=== PATIENT | female | born 1975 | race Caucasian/White ===

== ENCOUNTER 2018-05-07 14:31 | Emergency (ER) | payer OTHER | END 2018-05-07 15:23 | disposition left against medical advice (07) | LOC: D.ER 14:31 | DX: G89.18 Other acute postprocedural pain (principal) ==

== ENCOUNTER 2018-10-03 15:04 | Emergency (ER) | payer MEDICAID ==
[~2018-10-03] VITALS: Ht 162.6 cm; Wt 157.3 kg
[2018-10-03 15:19] VITALS: Ht 162.6 cm; Wt 157.3 kg
[2018-10-03] MEDS ORDERED: COREG25 MG PO (15:21)
[2018-10-03] MEDS ORDERED: K LYTE PO (15:21)
[2018-10-03] MEDS ORDERED: ALDACTONE100 MG PO (15:22)
[2018-10-03] MEDS ORDERED: BUMETANIDE0.5 MG PO (15:22)
[2018-10-03] MEDS ORDERED: MIDAMOR5 MG PO (15:22)
[2018-10-03] MEDS ORDERED: METOLAZONE5 MG PO (15:24)
[2018-10-03] MEDS ORDERED: ZANAFLEX2 M1 PO (15:24)
[2018-10-03] MEDS ORDERED: LIORESAL 10 MG10 MG PO (15:24)
[2018-10-03] MEDS ORDERED: HYDROXYZINE PA100 MG PO (15:25)
[2018-10-03] MEDS ORDERED: COMPAZINE5 MG PO (15:25)
[2018-10-03] MEDS ORDERED: MIRAPEX0.5 MG PO (15:25)
[2018-10-03] MEDS ORDERED: ULTRAM50 MG PO (19:47)
[2018-10-03 20:11] VITALS: BP 156/82
== END 2018-10-03 20:11 | disposition home or self-care (01) ==
LOC: D.ER 15:04
DX: K94.23 Gastrostomy malfunction (principal)

== ENCOUNTER 2018-10-04 11:47 | Emergency (ER) | payer MEDICAID ==
[~2018-10-04] VITALS: Ht 162.6 cm; Wt 157.3 kg
[~2018-10-04 11:47] MED LIST: ALDACTONE100 MG PO; BUMETANIDE0.5 MG PO; COMPAZINE5 MG PO; COREG25 MG PO; HYDROXYZINE PA100 MG PO; K LYTE PO; LIORESAL 10 MG10 MG PO; METOLAZONE5 MG PO; MIDAMOR5 MG PO; MIRAPEX0.5 MG PO; ULTRAM50 MG PO; ZANAFLEX2 M1 PO
[2018-10-04 11:50] VITALS: Ht 162.6 cm; Wt 157.3 kg
[2018-10-04 12:58] LABS: BASOPHILS 0.7 % (0-2); EOSINOPHILS 3.3 % (0-7); HEMATOCRIT 35.8 % (36.0-48.0); HEMOGLOBIN 11.5 g/dL (12-16); IMMATURE GRANULOCYTES 0.2 % (0-5); LYMPHOCYTES 28.4 % (15-50); MCH 24.3 pg (26.0-34.0); MCHC 32.1 g/dL (31.0-37.0); MCV 75.7 fL (80.0-100.0); MEAN PLATELET VOLUME 9.5 fL (7.4-10.4); MONOCYTES 6.1 % (2-11); NEUTROPHILS 61.3 % (40-80); PLATELET COUNT 228 10x3/uL (130-400); RBC 4.73 10x6/uL (4.00-5.40); RDW 15.3 % (11.5-14.5); WBC 6.1 10x3/uL (4.8-10.8)
[2018-10-04 13:01] LABS: ALBUMIN 2.8 g/dL (3.4-5.0); ALKALINE PHOSPHATASE 91 U/L (46-116); ALT (SGPT) 31 U/L (10-68); AMYLASE - SERUM 15 U/L (25-115); BILIRUBIN - TOTAL 0.46 mg/dL (0.2-1.3); CALC OSMOLALITY 279 mosm/kg (275-300); CALCIUM 8.3 mg/dL (8.5-10.1); CARBON DIOXIDE 23.4 mmol/L (21.0-32.0); CHLORIDE - SERUM 108 mmol/L (98-107); CREATININE - SERUM 0.7 mg/dL (0.6-1.3); GLUCOSE 108 mg/dL (74-106); LIPASE 100 U/L (73-393); POTASSIUM - SERUM 3.5 mmol/L (3.5-5.1); PROTEIN - SERUM 6.4 g/dL (6.4-8.2); SODIUM 141 mmol/L (136-145); UREA NITROGEN 8 mg/dL (7-18); eGFR NON AFRICAN AMERICAN > 90 mL/min (90-120)
[2018-10-04 13:42] LABS: APPEARANCE HAZY (CLEAR); BILIRUBIN NEGATIVE (NEGATIVE); COLOR YELLOW (YELLOW); GLUCOSE NEGATIVE (NEGATIVE); KETONE NEGATIVE (NEGATIVE); NITRITE NEGATIVE (NEGATIVE); PROTEIN TRACE mg/dL (NEGATIVE); RED CELLS - URINE RARE /hpf (0-5); SPECIFIC GRAVITY 1.015 (1.005-1.020)
[2018-10-04 13:43] LABS: BACTERIA MANY /hpf (NONE SEEN); CALCIUM OXALATE CRYSTALS 0-5 /hpf (NONE SEEN); EPITHELIAL CELLS 0-5 /hpf (0-5); MUCUS <1+ /lpf (NONE SEEN)
[2018-10-04 15:04] VITALS: BP 164/85
== END 2018-10-04 15:05 | disposition home or self-care (01) ==
LOC: D.ER 11:47
PROVIDERS: Family Medicine
DX: K94.23 Gastrostomy malfunction (principal)

== ENCOUNTER 2018-10-07 11:04 | Emergency (ER) | payer MEDICAID ==
[~2018-10-07] VITALS: Ht 162.6 cm; Wt 157.3 kg
[2018-10-07 11:15] VITALS: Ht 162.6 cm; Wt 157.3 kg
[2018-10-07 13:42] LABS: BASOPHILS 0.3 % (0-2); EOSINOPHILS 3.3 % (0-7); HEMATOCRIT 37.9 % (36.0-48.0); HEMOGLOBIN 12.1 g/dL (12-16); IMMATURE GRANULOCYTES 0.2 % (0-5); LYMPHOCYTES 25.7 % (15-50); MCH 24.2 pg (26.0-34.0); MCHC 31.9 g/dL (31.0-37.0); MCV 75.8 fL (80.0-100.0); MEAN PLATELET VOLUME 9.3 fL (7.4-10.4); MONOCYTES 5.5 % (2-11); PLATELET COUNT 235 10x3/uL (130-400); RDW 14.9 % (11.5-14.5)
[2018-10-07 13:54] LABS: CALC OSMOLALITY 275 mosm/kg (275-300); CALCIUM 8.3 mg/dL (8.5-10.1); CARBON DIOXIDE 23.9 mmol/L (21.0-32.0); CHLORIDE - SERUM 104 mmol/L (98-107); CREATININE - SERUM 0.8 mg/dL (0.6-1.3); GLUCOSE 99 mg/dL (74-106); POTASSIUM - SERUM 3.2 mmol/L (3.5-5.1); SODIUM 139 mmol/L (136-145); UREA NITROGEN 8 mg/dL (7-18); eGFR NON AFRICAN AMERICAN 83 mL/min (90-120)
[2018-10-07] MEDS ORDERED: CLEOCIN HCL300 MG PO (14:15)
[2018-10-07] MEDS ORDERED: ULTRAM50 MG PO (14:15)
[2018-10-07 15:10] VITALS: BP 124/74
== END 2018-10-07 14:47 | disposition home or self-care (01) ==
LOC: D.ER 11:04
PROVIDERS: Emergency Medicine
DX: K94.23 Gastrostomy malfunction (principal); E87.6 Hypokalemia

== ENCOUNTER → 2018-12-19 15:47 | Outpatient (CLI) | payer OTHER, MEDICAID ==
[2018-10-07 11:15] VITALS: BMI 59.5
[~2018-12-19 15:47] MED LIST changes: +CLEOCIN HCL300 MG PO
[2018-12-19 16:54] LABS: ALKALINE PHOSPHATASE 107 U/L (46-116); ALT (SGPT) 32 U/L (10-68); BILIRUBIN - TOTAL 0.15 mg/dL (0.2-1.3); CARBON DIOXIDE 26.8 mmol/L (21.0-32.0); CHLORIDE - SERUM 100 mmol/L (98-107); CREATININE - SERUM 0.8 mg/dL (0.6-1.3); MAGNESIUM - SERUM 1.7 mg/dL (1.8-2.4); PROTEIN - SERUM 6.5 g/dL (6.4-8.2); SODIUM 138 mmol/L (136-145); UREA NITROGEN 13 mg/dL (7-18); eGFR NON AFRICAN AMERICAN 83 mL/min (90-120)
[2018-12-19 16:55] LABS: CALC OSMOLALITY 280 mosm/kg (275-300); GLUCOSE 191 mg/dL (74-106)
[2018-12-19 16:58] LABS: POTASSIUM - SERUM 2.9 mmol/L (3.5-5.1)
== END | disposition home or self-care (01) ==
LOC: D.LABREF 15:47
PROVIDERS: ATTEND Internal Medicine
DX: I11.0 Hypertensive heart disease with heart failure (principal); I50.9 Heart failure, unspecified; E11.9 Type 2 diabetes mellitus without complications

== ENCOUNTER 2020-03-26 05:44 | Day surgery (SDC) | payer MEDICARE ==
[~2020-03-26] VITALS: Ht 162.6 cm; Wt 152.4 kg
[2020-03-26 06:06] LABS: BASOPHILS 0.5 % (0-2); EOSINOPHILS 3.7 % (0-7); HEMATOCRIT 31.1 % (36.0-48.0); HEMOGLOBIN 9.2 g/dL (12-16); IMMATURE GRANULOCYTES 1.3 % (0-5); LYMPHOCYTES 31.2 % (15-50); MCH 21.6 pg (26.0-34.0); MCHC 29.6 g/dL (31.0-37.0); MEAN PLATELET VOLUME 9.6 fL (7.4-10.4); MONOCYTES 5.2 % (2-11); NEUTROPHILS 58.1 % (40-80); PLATELET COUNT 242 10x3/uL (130-400); RBC 4.26 10x6/uL (4.00-5.40); RDW 15.7 % (11.5-14.5)
[2020-03-26 06:20] LABS: INR 0.97 (0.85-1.17); PROTIME 12.8 SECONDS (11.6-15.0)
[2020-03-26 06:23] LABS: ANION GAP 16.3 mmol/L (8-16); CALCIUM 8.7 mg/dL (8.5-10.1); CARBON DIOXIDE 20.2 mmol/L (21.0-32.0); POTASSIUM - SERUM 3.5 mmol/L (3.5-5.1)
[2020-03-26 07:04] VITALS: Ht 162.6 cm; Wt 152.4 kg
[2020-03-26] MEDS ORDERED: REQUIP0.25 MG PO (07:26)
[2020-03-26] MEDS ORDERED: JARDIANCE25 MG PO (07:27)
[2020-03-26] MEDS ORDERED: PHENERGAN6.25 MG/5 PO (07:27)
[2020-03-26] MEDS ORDERED: VICTOZA0.6 MG/0.1 SQ (07:28)
[2020-03-26] MEDS ORDERED: PRECOSE25 MG PO (07:28)
[2020-03-26] MEDS ORDERED: BASAGLAR K100 UNIT/1 SC (07:29)
[2020-03-26] MEDS ORDERED: VITAMIN D5000 UNI1 PO (07:29)
[2020-03-26] MEDS ORDERED: XARELTO20 MG PO (07:30)
[2020-03-26] MEDS ORDERED: NORTRIPTYLINE H50 MG PO (07:30)
[2020-03-26] MEDS ORDERED: XANAX1 MG PO (07:30)
[2020-03-26] MEDS ORDERED: BUSPIRONE HCL7.5 MG PO (07:31)
--- NOTE | 2020-03-26 09:50 | NUR ---
STERILE MAGNET PLACED OVER ICD IMPLANT PRIOR TO START OF PROCEDURE.
[2020-03-26] MEDS ORDERED: ULTRAM50 MG PO (10:39)
--- NOTE | 2020-03-26 10:57 | NUR ---
1025 INFUSAPORT ACCESSED RIGHT UPPER CHEST USING STERILE TECHNIQUE. GOOD BLOOD RETURN ON ASPIRATION. IV FLUID CONNECTED.
--- NOTE | 2020-03-26 14:02 | NUR ---
121 DISCHARGED HOME. TAKEN DOWN VIA W/C AND ASSISTED TO CAR WITH FAMILY. ADVISED TO CALL OR COME BACK IF ANY PROBLEMS.
--- NOTE | 2020-03-30 16:05 | OP ---
PATIENT NAME: SASCHA GONZALEZ MEDICAL RECORD: [id number] :75 LOCATION:[place] ADMISSION DATE: SURGEON: KENDALL MAURICIO MD DATE OF OPERATION: 03/26/2020 REFERRED BY: Hebert Parr MD PREOPERATIVE DIAGNOSES: Nonfunctioning left internal jugular tunneled dialysis catheter and end-stage renal disease, on chronic hemodialysis and dependence on hemodialysis, also malignant hyperthermia susceptibility. POSTOPERATIVE DIAGNOSES: Nonfunctioning left internal jugular tunneled dialysis catheter and end-stage renal disease, on chronic hemodialysis and dependence on hemodialysis, also malignant hyperthermia susceptibility. OPERATION PERFORMED: Insertion of a right internal jugular HemoSplit tunneled dialysis catheter accessed by continuous real-time ultrasound guidance with image documentation and fluoroscopically guided placement of the catheter in the right atrium with contrast injection to confirm position and then, also removal of left internal jugular tunneled dialysis catheter. SURGEON: Kendall Mauricio MD ANESTHESIA: Local 1% lidocaine without epinephrine and propofol with monitoring and management per RN ER. PREOPERATIVE NOTE: This young lady is on chronic hemodialysis due to chronic kidney disease, which is a chronic potassium wasting illness. She has required large amounts of potassium replacement and for that reason has a right internal jugular Infusaport. She also has a history of congestive heart failure and cardiac dysrhythmias and has an automatic intracardiac defibrillator which was inserted transvenously from the left. She is presently on dialysis via left internal jugular tunneled dialysis catheter, which has not functioned well and I replaced it only a few days ago at [facility] and my new catheter even though placed much more deeply into the inferior vena cava is not functioning either. The patient is brought to the hospital and to the operating room as an outpatient this morning in order to remove the present catheter and replace it with a new one. Probably at least if I can, I am going to access her from the right side. All the personnel are aware of the patient's history of malignant hyperthermia or it susceptibility demonstrated on genetic testing at [facility] and protocol will be followed for that. Under TIVA per RN ER with propofol intravenously, the patient was placed in supine position and prepped and draped in a sterile manner. A duplex ultrasound was used to locate and examined the right internal jugular vein. It was of normal caliber and fully compressible without thrombosis and the Infusaport catheter was not visible above the clavicle in the internal jugular vein. The fluoroscopic images demonstrated the catheter in a somewhat lateral position as possible this was a supraclavicular access actually into the proximal subclavian vein or very proximal internal jugular. Skin and subcutaneous tissues were anesthetized with lidocaine and a small incision was made at the base of the neck there on the right and then, again with continuous real-time ultrasound imaging, a micropuncture needle and guidewire were inserted into the right internal jugular vein. Fluoroscopy revealed satisfactory positioning of that, a OPERATIVE REPORT [id number] SASCHA GONZALEZ catheter was inserted over the wire and a wire exchange performed and I advanced a wire into the inferior vena cava. Dilators were passed over the wire and lastly, a dilator peel-away sheath. I chose a 23-cm long catheter so that we had plenty of length to place it deeply into the right atrium or upper inferior vena cava. The catheter was placed in a subcutaneous tunnel through a small incision beneath the right clavicle and brought up to the cervical wound where it was then inserted through the peel-away sheath. The sheath was removed and the catheter tips positioned deep in the right atrium. At first, the venous limb passed into the ventricle and the catheter was pulled back and then readvanced over the guidewire into the inferior vena cava and contrast injection performed at both locations to confirm the interpretation and subsequent final positioning. Both limbs of the catheter were accessed and aspirated, free return of blood was confirmed. It was then flushed with heparinized saline and then heparin locked with 1000 units per cc of heparin. The catheter was sutured to the skin near the entry site with 2-0 Prolene and the cervical incision closed with a single interrupted inverted 3-0 Vicryl and Dermabond glue and I was dressed then with Maxorb Ag, Tegaderm, and Cavilon skin prep. A chlorhexidine Biopatch was applied at the catheter entry site and a sterile adhesive CVL dressing then applied. The patient's Infusaport had been utilized preoperatively for venous access before she was prepped and draped, the needle was removed and at the end of the case, the port was re-accessed and flushed with heparinized solution and the needle removed. During the procedure, the left internal jugular catheter was pulled back, so that there was ample room in the right atrium for the new hardware that was being inserted and when I was sufficiently pleased with the position of the new catheter, the left-sided catheter was then removed completely. The Dacron felt cuff was not adherent within the subcutaneous canal due to this only having been there for a couple of days and it required minimal traction to remove the catheter. The patient was placed in reverse Trendelenburg position and direct pressure held on the old catheter tract after which, the site was dressed with Betadine ointment and a sterile dry gauze dressing. At this point, the patient fully awakened, was taken to the recovery room in stable condition. Blood loss during the operation about 10 cc. This was unreplaced. Sponges, instruments, and needles were accounted for and no drain was used. The patient's systemic anticoagulation, I believe is Xarelto at any rate a NOAC was not interrupted for this procedure. PLAN: The patient will be discharged to home with instructions to keep the head elevated all day. She is to leave the initial dressing alone, keep it dry and intact and the dressings can be removed and changed at dialysis. She will continue all of her same medications including anticoagulants. I will not need to see her back in my office unless there is a problem or complication. She is given my office and personal cell telephone numbers and is advised to call if she has any questions or concerns. She is given a prescription for 10 tramadol 50 mg tablets 1 p.o. q.4 hours p.r.n. pain. TRANSINT:[id number] Voice Confirmation ID: [id number] DOCUMENT ID: [id number] cc: [facility] OPERATIVE REPORT [id number] SASCHA GONZALEZ JAMES MD at 1605 CC: ISIS CLEMENTS MD [id number] DICTATION DATE: 03/26/20 1101 SALES ACCOUNT COORDINATOR: 03/26/20 1655 [facility] 03/26/20 [facility] [address] [place] [address]
== END 2020-03-26 12:15 | disposition home or self-care (01) ==
LOC: D.OPS 05:44
PROVIDERS: ATTEND Internal Medicine Nephrology
DX: T82.49XA Other complication of vascular dialysis catheter, initial encounter (principal); N18.6 End stage renal disease; Z99.2 Dependence on renal dialysis; R50.9 Fever, unspecified; E03.9 Hypothyroidism, unspecified; E78.5 Hyperlipidemia, unspecified

== ENCOUNTER 2020-03-31 15:39 | Inpatient (IN) | payer MEDICARE ==
[~2020-03-31] VITALS: Ht 162.6 cm; Wt 156.0 kg
[~2020-03-31 15:39] MED LIST changes: +BASAGLAR K100 UNIT/1 SC; +BUSPIRONE HCL7.5 MG PO; +JARDIANCE25 MG PO; +NORTRIPTYLINE H50 MG PO; +PHENERGAN6.25 MG/5 PO; +PRECOSE25 MG PO; +REQUIP0.25 MG PO; +VICTOZA0.6 MG/0.1 SQ; +VITAMIN D5000 UNI1 PO; +XANAX1 MG PO; +XARELTO20 MG PO
[2020-03-31 16:32] LABS: CALC OSMOLALITY 272 mosm/kg (275-300); CALCIUM 8.3 mg/dL (8.5-10.1); CARBON DIOXIDE 22.3 mmol/L (21.0-32.0); CHLORIDE - SERUM 99 mmol/L (98-107); CREATININE - SERUM 0.9 mg/dL (0.6-1.3); GLUCOSE 183 mg/dL (74-106); POTASSIUM - SERUM 3.7 mmol/L (3.5-5.1); SODIUM 134 mmol/L (136-145); UREA NITROGEN 12 mg/dL (7-18); eGFR NON AFRICAN AMERICAN 72 mL/min (90-120)
[2020-03-31 16:49] LABS: ALKALINE PHOSPHATASE 147 U/L (30-120); ALT (SGPT) 40 U/L (10-68); BILIRUBIN - TOTAL 0.48 mg/dL (0.2-1.3); CKMB 0.6 U/L (0.0-3.6); CREATINE KINASE 43 UL (21-215); PRO BNP 217 pg/mL (0-125)
[2020-03-31 16:56] LABS: TROPONIN-I < 0.017 ng/mL (0.000-0.060)
[2020-03-31 17:04] LABS: ALBUMIN 3.6 g/dL (3.4-5.0)
[2020-03-31 17:25] LABS: BASOPHILS 0.2 % (0-2); EOSINOPHILS 2.1 % (0-7); IMMATURE GRANULOCYTES 0.9 % (0-5); LYMPHOCYTES 18.7 % (15-50); MCH 23.3 pg (26.0-34.0); MCHC 30.3 g/dL (31.0-37.0); MCV 76.7 fL (80.0-100.0); MEAN PLATELET VOLUME 9.5 fL (7.4-10.4); MONOCYTES 4.6 % (2-11); NEUTROPHILS 73.5 % (40-80); PLATELET COUNT 142 10x3/uL (130-400); WBC 8.9 10x3/uL (4.8-10.8)
[2020-03-31 17:49] LABS: APTT 29.3 SECONDS (22.8-39.4); INR 1.03 (0.85-1.17); PROTIME 13.4 SECONDS (11.6-15.0)
[2020-03-31 20:30] VITALS: BP 138/99
--- NOTE | 2020-03-31 21:40 | NUR ---
TO BED VIA WC FROM ER ALERT AND ORIENTED C/O PAIN TO BED LOW AND LOCKED LOTS OF NEEDS SEEN TO AND MD NOTIFIED OF PAIN MED REQUEST CALL LIGHT IS WITH PT
--- NOTE | 2020-03-31 22:03 | NUR ---
TELEMETRY IS NOT AVAILABLE AT THIS TIME PT ON WAITING LIST
[2020-04-01 04:00] VITALS: BP 139/67
[2020-04-01 05:32] LABS: BASOPHILS 0.4 % (0-2); EOSINOPHILS 3.5 % (0-7); HEMOGLOBIN 9.5 g/dL (12-16); IMMATURE GRANULOCYTES 0.7 % (0-5); LYMPHOCYTES 27.8 % (15-50); MCH 22.9 pg (26.0-34.0); MCHC 29.7 g/dL (31.0-37.0); MCV 77.1 fL (80.0-100.0); MEAN PLATELET VOLUME 9.7 fL (7.4-10.4); MONOCYTES 6.2 % (2-11); NEUTROPHILS 61.4 % (40-80); PLATELET COUNT 133 10x3/uL (130-400); RBC 4.15 10x6/uL (4.00-5.40); RDW 21.3 % (11.5-14.5); WBC 7.2 10x3/uL (4.8-10.8)
[2020-04-01 06:05] LABS: ALBUMIN 3.2 g/dL (3.4-5.0); ALKALINE PHOSPHATASE 128 U/L (30-120); ALT (SGPT) 33 U/L (10-68); BILIRUBIN - TOTAL 0.58 mg/dL (0.2-1.3); CARBON DIOXIDE 23.5 mmol/L (21.0-32.0); CHLORIDE - SERUM 100 mmol/L (98-107); CREATININE - SERUM 0.7 mg/dL (0.6-1.3); GLUCOSE 171 mg/dL (74-106); POTASSIUM - SERUM 3.5 mmol/L (3.5-5.1); PROTEIN - SERUM 6.2 g/dL (6.4-8.2); SODIUM 135 mmol/L (136-145); eGFR NON AFRICAN AMERICAN > 90 mL/min (90-120)
[2020-04-01 06:06] LABS: CALC OSMOLALITY 271 mosm/kg (275-300); UREA NITROGEN 8 mg/dL (7-18)
[2020-04-01 06:46] VITALS: BP 152/87; BMI 58.1; BMI 58.3
--- NOTE | 2020-04-01 07:00 | NUR ---
RECEIVED REPORT. ASSUMED CARE OF PATIENT. PATIENT RESTING IN BED WITH EYES OPEN. RESP EVEN AND UNLABORED. CALL LIGHT WITHIN REACH. WHITE BOARD UPDATED. BEDSIDE SHIFT REPORT COMPLETE. DENIES NEEDS AT THIS TIME. NO DISTRESS.
--- NOTE | 2020-04-01 07:00 | NUR ---
SHOP BLACKSMITH ASSESSMENT COMPLETED AT THIS TIME. PT RESTING IN BED WITH NO DISTRESS. RENAL MD'S NOW ROUNDING.
[2020-04-01 09:42] VITALS: BP 141/94
[2020-04-01 11:00] VITALS: BP 146/91
--- NOTE | 2020-04-01 11:32 | NUR ---
FSBS 255. 6 UNITS HUMULIN ADMINISTERED PER SLIDING SCALE.
--- NOTE | 2020-04-01 12:04 | NUR ---
CALL PLACED TO RENAL PRE BILLING SPECIALIST TO REQUEST PAIN MEDICATION. PATIENT COMPLAINS ULTRAM IS NOT EFFECTIVE.
--- NOTE | 2020-04-01 13:05 | NUR ---
MEDICATED FOR PAIN AT THIS TIME. NO DISTRESS.
--- NOTE | 2020-04-01 13:45 | NUR ---
PATIENT UTILIZES CALL LIGHT ABOUT EVERY 30 MINUTES. CARES PROVIDED TO THE BEST OF THIS WRITERS ABILITY.
[2020-04-01 13:49] VITALS: BMI 58.0
--- NOTE | 2020-04-01 13:58 | NUR ---
MEDICATED FOR NAUSEA AT THIS TIME.
--- NOTE | 2020-04-01 14:54 | NUR ---
AT BEDSIDE AND PULLED HEMOSPLIT WITHOUT DIFFICULTY. PATIENT TOLERATED PROCEDURE WELL AND STATES ALL PAIN RESOLVED TO AREA. NO BLEEDING FROM SITE. NEW ORDER RECEIVED FOR NEOSPORING OINTMENT BID WITH SIMPLE DRESSING AND KEEP PATIENT UPRIGHT FOR 20 MINUTES. NO DISTRESS.
--- NOTE | 2020-04-01 16:42 | NUR ---
FSBS 215. 4 UNITS HUMULIN ADMINISTERED PER SLIDING SCALE.
--- NOTE | 2020-04-01 18:21 | NUR ---
RESTING IN BED. K+ REDRAW ORDERED FOR 2099. NO DISTRESS. CALL LIGHT WITHIN REACH.
--- NOTE | 2020-04-01 19:27 | NUR ---
NEEDS SEEN TO BED LOW AND LOCKED AND CALL LIGHTY IS WITH PT
[2020-04-01 19:40] VITALS: Ht 162.6 cm; Wt 156.0 kg
[2020-04-01 20:00] VITALS: BP 129/81
--- NOTE | 2020-04-01 22:05 | NUR ---
PT'S SKIN BECAME RED AND A BRUISE DEVELOPED DOWN FROM THE IV AFTER GETTIN IV MEDS REDNESS WENT AWAY BUT BRUISE REMAINS
[2020-04-02] VITALS: BP 149/97
[2020-04-02 04:00] VITALS: BP 144/73
--- NOTE | 2020-04-02 07:30 | NUR ---
REPORT RECIEVED. PT SITTING SEMI FOLWERS IN BED. RR EVEN AND UNLABORED ON 4L NC. SHE HAS A R FA PIV THAT IS SL. BED LOCKED AND IN LOWEST POSITION, CALL LIGHT WITHIN REACH. WILL CTM
[2020-04-02 07:54] LABS: ANION GAP 11.8 mmol/L (8-16); CALCIUM 8.7 mg/dL (8.5-10.1); CARBON DIOXIDE 26.4 mmol/L (21.0-32.0); CREATININE - SERUM 0.9 mg/dL (0.6-1.3); POTASSIUM - SERUM 3.2 mmol/L (3.5-5.1)
[2020-04-02 07:55] LABS: MAGNESIUM - SERUM 1.9 mg/dL (1.8-2.4)
[2020-04-02 09:00] VITALS: BP 136/85
[2020-04-02 11:00] VITALS: BP 128/87
--- NOTE | 2020-04-02 11:45 | NUR ---
INSERTED DELATORRE CATH. PT TOLERATED WELL. WILL CTM
[2020-04-02 15:00] VITALS: BP 130/89
--- NOTE | 2020-04-02 18:53 | NUR ---
MUNA NEEDS OR C/O. RESP UL ON . NANDINI FANG. CALL LIGHT IN REACH.
--- NOTE | 2020-04-02 19:30 | NUR ---
PT IN BED, AAO X 3, RESP EVEN AND UNLABORED. NO DISTRESS NOTED, CL IN REACH, SR UP X 2.
[2020-04-02 20:00] VITALS: BP 139/88
[2020-04-03] VITALS: BP 139/83
[2020-04-03 04:00] VITALS: BP 137/84
--- NOTE | 2020-04-03 07:30 | NUR ---
REPORT RECIEVED. PT SITTNG FOWLERS IN BED. RR EVEN AND UNLABORED ON 4L NC. SHE HAS A R FA PIV THAT IS SL. BED LOCKED AND IN LOWEST POSITION, CALL LIGHT WITHIN REACH. WILL CTM
[2020-04-03 10:05] LABS: CALC OSMOLALITY 270 mosm/kg (275-300); CALCIUM 8.5 mg/dL (8.5-10.1); CARBON DIOXIDE 26.2 mmol/L (21.0-32.0); CHLORIDE - SERUM 98 mmol/L (98-107); CREATININE - SERUM 0.7 mg/dL (0.6-1.3); GLUCOSE 232 mg/dL (74-106); MAGNESIUM - SERUM 1.8 mg/dL (1.8-2.4); SODIUM 132 mmol/L (136-145); UREA NITROGEN 9 mg/dL (7-18); eGFR NON AFRICAN AMERICAN > 90 mL/min (90-120)
[2020-04-03 10:08] LABS: POTASSIUM - SERUM 3.8 mmol/L (3.5-5.1)
[2020-04-03 11:22] VITALS: BP 145/95
--- NOTE | 2020-04-03 13:28 | NUR ---
RESTS IN BED WITH CALL LIGHT IN REACH. RESP UL ON NC. TELEMETRY ST 103. DELATORRE INTACT. MUNA NEEDS AT THIS TIME.
--- NOTE | 2020-04-03 13:34 | NUR ---
Nutrition Follow-up: Eating well. HD cath out. Diet: Renal PO intake: 93% avg x 7 meals WT: 334# (04/03); 327# (04/02); 337.7# (04/01) Last BM: 04/02 Labs noted: BUN 9, Cre 0.7, GFR >90, K+ 3.8, Na 132, Glu 232 Meds noted: Bumex, Humulin, KDur, electrolyte protocol -Renal labs wnl, Glu elevated. Change to cardiac carb consistent diet. -Monitor wt; noted daily wts ordered. -RD following.
[2020-04-03 14:57] VITALS: BP 146/90
[2020-04-03 18:54] VITALS: BP 159/89
--- NOTE | 2020-04-03 19:30 | NUR ---
PT IN BED, AAO X 3, RESP EVEN AND UNLABORED. NO DISTRESS NOTED, CL IN REACH, SR UP X 2.
[2020-04-03 20:00] VITALS: BP 138/77
[2020-04-04] VITALS: BP 147/98
[2020-04-04 04:00] VITALS: BP 132/86
[2020-04-04 05:20] LABS: ANION GAP 9.2 mmol/L (8-16); CALCIUM 8.1 mg/dL (8.5-10.1); CARBON DIOXIDE 29.2 mmol/L (21.0-32.0); MAGNESIUM - SERUM 1.9 mg/dL (1.8-2.4); POTASSIUM - SERUM 3.4 mmol/L (3.5-5.1)
[2020-04-04 05:22] LABS: CREATININE - SERUM 0.9 mg/dL (0.6-1.3)
[2020-04-04 09:27] LABS: POTASSIUM - URINE 42.1 MMOL/L (12.0-62.0); PROTEIN - URINE 69.4 mg/dL (0.0-11.9)
[2020-04-04 09:34] VITALS: BP 159/94
[2020-04-04 09:35] LABS: CREATININE - URINE 300.3 mg/dL (30-125); PRO/CRE RATIO URINE 0.2 mg/g
[2020-04-04 12:00] VITALS: BP 153/90
--- NOTE | 2020-04-04 14:15 | NUR ---
RESTS IN BED WITH EYES CLOSED. RESP UL ON . TELEMETRY ST 106. DELATORRE INTACT. CALL LIGHT IN REACH.
[2020-04-04 16:00] VITALS: BP 153/96
[2020-04-04 16:29] LABS: BILIRUBIN NEGATIVE (NEGATIVE); GLUCOSE NEGATIVE (NEGATIVE); KETONE NEGATIVE (NEGATIVE); NITRITE POSITIVE (NEGATIVE); SPECIFIC GRAVITY 1.025 (1.005-1.020); UROBILINOGEN NORMAL (NORMAL)
[2020-04-04 16:30] LABS: BACTERIA MANY /hpf (NEGATIVE); EPITHELIAL CELLS 0-5 /hpf (0-5); WHITE CELLS - URINE >50 /hpf (NEGATIVE)
[2020-04-04 16:31] LABS: URIC ACID CRYSTALS 0-5 \\hpf (NONE SEEN)
--- NOTE | 2020-04-04 19:30 | NUR ---
PT IN BED, AAO X 3, RESP EVEN AND UNLABORED, NO DISTRESS NOTED, CL IN REACH, SR UP X 2.
[2020-04-04 20:00] VITALS: BP 157/98
[2020-04-05] VITALS: BP 135/84
[2020-04-05 04:00] VITALS: BP 131/87
[2020-04-05 05:12] LABS: ANION GAP 11.7 mmol/L (8-16); CALCIUM 8.3 mg/dL (8.5-10.1); CARBON DIOXIDE 25.6 mmol/L (21.0-32.0); CREATININE - SERUM 0.9 mg/dL (0.6-1.3); MAGNESIUM - SERUM 1.8 mg/dL (1.8-2.4); POTASSIUM - SERUM 3.3 mmol/L (3.5-5.1)
--- NOTE | 2020-04-05 07:15 | NUR ---
RECEIVED REPORT, ASSUMED CARE, A&O X3, SITTING IN BED WORKING ON SCHOOL WORK, CALL LIGHT IN REACH, BED LOWEST POSITION, DENIES NEEDS, BREATHING EVEN UNLABORED, DELATORRE CATH TO GRAVITY, IV SL RFA, WILL CONTINUE POC
[2020-04-05 09:16] VITALS: BP 168/92
--- NOTE | 2020-04-05 12:40 | NUR ---
DELATORRE CATH REMOVED TIP INTACT
[2020-04-05 20:28] VITALS: BP 134/80
--- NOTE | 2020-04-06 03:26 | NUR ---
I have reviewed this patient and I concur with the Shift Assessment completed by the Licensed Practical Nurse today this shift.
[2020-04-06 05:00] VITALS: BP 129/60
[2020-04-06 07:52] LABS: CALC OSMOLALITY 273 mosm/kg (275-300); CALCIUM 8.5 mg/dL (8.5-10.1); CARBON DIOXIDE 25.1 mmol/L (21.0-32.0); CHLORIDE - SERUM 101 mmol/L (98-107); CREATININE - SERUM 0.8 mg/dL (0.6-1.3); MAGNESIUM - SERUM 1.9 mg/dL (1.8-2.4); POTASSIUM - SERUM 3.7 mmol/L (3.5-5.1); SODIUM 136 mmol/L (136-145); UREA NITROGEN 9 mg/dL (7-18); eGFR NON AFRICAN AMERICAN 82 mL/min (90-120)
[2020-04-06 07:54] LABS: GLUCOSE 144 mg/dL (74-106)
[2020-04-06] MEDS ORDERED: Levaquin PO (10:02)
[2020-04-06] MEDS ORDERED: EPLERENONE25 MG PO (10:04)
[2020-04-06] MEDS ORDERED: MIDAMOR5 MG PO (10:05)
[2020-04-06 10:06] VITALS: BP 148/90
[2020-04-06] MEDS ORDERED: BUMEX2 MG PO ×2 (10:06→10:38)
[2020-04-06] MEDS ORDERED: K-DUR20 MEQ PO (10:07)
--- NOTE | 2020-04-06 16:51 | MORECARE ---
CASE MANAGEMENT DISCHARGE SUMMARY PATIENT: SASCHA GONZALEZ UNIT: [id number] ADM DATE: 03/31/20 AGE: 44 : 75 SEX: F ROOM/BED: D.3965 AUTHOR: JULIEN,DOC PHYSICIAN: REFERRING PHYSICIAN: LATIA ALVAREZ DO DATE OF SERVICE: 04/06/20 Discharge Plan Patient Name: SASCHA GONZALEZ Facility: [facility]:[place] : 1975 Planned Disposition: Home with Home Health Anticipated Discharge Date: 04/06/20 Discharge Date: 04/06/2020 Expected LOS: 6 Initial Reviewer: ALEK Initial Review Date: 03/31/2020 Generated: 04/06/20 5:51 pm Comments DCP- Discharge Planning Updated by [id number]: Brenda Pandya on 04/06/20 3:[address] Patient Name: SASCHA GONZALEZ Admission Status: ER Accout number: [id number] Admission Date: 03-31-2020 : 1975 Admission Diagnosis:PAIN DUE TO VASCULAR PROSTH DEV/GRFT, INITIAL ENCOUNTER Attending: HONORIO Current LOS: 6 Anticipated DC Date: 04-06-2020 Planned Disposition: Home with Home Health Primary Insurance: AET[employer] MEDICARE PPO or HMO Discharge Planning Comments: CM met with patient to complete initial dc planning assessment. CM educated patient on the CM role and verbal consent given by patient to complete assessment. Patient lives at home with family. Patient is independent. At discharge patient plans to return home and feels this is a safe discharge. CM discussed availability of home health, rehab services, and medical equipment. Patient uses [facility] for DME needs. Patient also has [facility] and plans to resume care. ZHANNA signed. D/C IMM SIGNED 04/06/20 @ 1040. Patient will have family to transport home. Patient denied known discharge needs at this time. CM will continue to follow and will assist as needed with dc plans/needs. Glass Vial Filler: Brenda Pandya DCPIA - Discharge Planning Initial Assessment Updated by [email or web address]: Brenda Pandya on 04/06/20 4:48 pm * Is the patient Alert and Oriented? Yes * How many steps to enter\exit or inside your home? * PCP [facility]IC[facility] * [facility] * Preadmission Environment Home with Family * ADLs Independent * Other Equipment WALKER,W/C,SC, CPAP, HOSPITAL BED, GLUCOMETER, BSC, SCALE, NEBULIZER, HOME/ PORT 02 * List name and contact numbers for known caregivers / representatives who currently or will assist patient after discharge: MIKHAIL GARCIA- [phone] JAMES CHRISTIE - [phone] * Verbal permission to speak to the caregivers and representatives has been obtained from the patient. Yes * Community resources currently utilized Home Health * Please name any agencies selected above. GREGORIA KEENAN * Additional services required to return to the preadmission environment? No * Can the patient safely return to the preadmission environment? Yes * Has this patient been hospitalized within the prior 30 days at any hospital? No Coverage Notice Reviewer: [id number] Samara Pandya Notice Issued Date-Time: 04/06/2020 10:40 Notice Type: IM Discharge Notice Notice Delivered To: Patient Relationship to Patient: Self Proposal Editor Name: Delivery Method: HAND - Hand Delivered Sierra Days: Prior Verbal Notification: Recipient Understood Notice: Yes Recipient Signature: Yes Med Rec Note Co-signed by Attending: Coverage Notice Comment: Reviewer: [id number] Samara Pandya Notice Issued Date-Time: 04/06/2020 10:43 Notice Type: Patient Choice Letter Notice Delivered To: Patient Relationship to Patient: Self Proposal Editor Name: Delivery Method: HAND - Hand Delivered Sierra Days: Prior Verbal Notification: Recipient Understood Notice: Yes Recipient Signature: Yes Med Rec Note Co-signed by Attending: Coverage Notice Comment: GREGORIA Patient Name: SASCHA GONZALEZ Page [id number] at 1651 All edits/amendments must be made on the electronic document DICTATION DATE: 04/06/201650 CHILD DEVELOPMENT ASSOCIATE TEACHER: UNRULY 04/06/201650 RPT#: [id number] DC DATE:04/06/20 STATUS: DIS IN [facility] [address] [place] [address] END OF REPORT
--- NOTE | 2020-04-06 17:48 | MORECARE ---
CASE MANAGEMENT DISCHARGE SUMMARY PATIENT: SASCHA GONZALEZ UNIT: [id number] ADM DATE: 03/31/20 AGE: 44 : 75 SEX: F ROOM/BED: D.4794 AUTHOR: JULIEN,DOC PHYSICIAN: REFERRING PHYSICIAN: LATIA ALVAREZ DO DATE OF SERVICE: 04/06/20 Discharge Plan Patient Name: SASCHA GONZALEZ Facility: [facility]:[place] : 1975 Planned Disposition: Home with Home Health Anticipated Discharge Date: 04/06/20 Discharge Date: 04/06/2020 Expected LOS: 6 Initial Reviewer: ALEK Initial Review Date: 03/31/2020 Generated: 04/06/20 6:47 pm Comments DCP- Discharge Planning Updated by [id number]: Brenda Pandya on 04/06/20 3:[address] Patient Name: SASCHA GONZALEZ Admission Status: ER Accout number: [id number] Admission Date: 03-31-2020 : 1975 Admission Diagnosis:PAIN DUE TO VASCULAR PROSTH DEV/GRFT, INITIAL ENCOUNTER Attending: HONORIO Current LOS: 6 Anticipated DC Date: 04-06-2020 Planned Disposition: Home with Home Health Primary Insurance: AET[employer] MEDICARE PPO or HMO Discharge Planning Comments: CM met with patient to complete initial dc planning assessment. CM educated patient on the CM role and verbal consent given by patient to complete assessment. Patient lives at home with family. Patient is independent. At discharge patient plans to return home and feels this is a safe discharge. CM discussed availability of home health, rehab services, and medical equipment. Patient uses [facility] for DME needs. Patient also has [facility] and plans to resume care. ZHANNA signed. D/C IMM SIGNED 04/06/20 @ 1040. Patient will have family to transport home. Patient denied known discharge needs at this time. CM will continue to follow and will assist as needed with dc plans/needs. Shoe Parts Molder: Brenda Pandya DCPIA - Discharge Planning Initial Assessment Updated by [id number]: Brenda Pandya on 04/06/20 4:48 pm * Is the patient Alert and Oriented? Yes * How many steps to enter\exit or inside your home? * PCP [facility] * [facility] * Preadmission Environment Home with Family * ADLs Independent * Other Equipment WALKER,W/C,SC, CPAP, HOSPITAL BED, GLUCOMETER, BSC, SCALE, NEBULIZER, HOME/ PORT 02 * List name and contact numbers for known caregivers / representatives who currently or will assist patient after discharge: MIKHAIL GARCIA- [phone] JAMES CHRISTIE - [phone] * Verbal permission to speak to the caregivers and representatives has been obtained from the patient. Yes * Community resources currently utilized Home Health * Please name any agencies selected above. GREGORIA KEENAN * Additional services required to return to the preadmission environment? No * Can the patient safely return to the preadmission environment? Yes * Has this patient been hospitalized within the prior 30 days at any hospital? No External Providers [facility] Next Contact Date: Service Request Date: Service Type: Resolution: Reviewer: Comments: Coverage Notice Reviewer: [id number] Samara Pandya Notice Issued Date-Time: 04/06/2020 10:40 Notice Type: IM Discharge Notice Notice Delivered To: Patient Relationship to Patient: Self Wine Manager Name: Delivery Method: HAND - Hand Delivered Sierra Days: Prior Verbal Notification: Recipient Understood Notice: Yes Recipient Signature: Yes Med Rec Note Co-signed by Attending: Coverage Notice Comment: Reviewer: [id number] Paul Pandya Notice Issued Date-Time: 04/06/2020 10:43 Notice Type: Patient Choice Letter Notice Delivered To: Patient Relationship to Patient: Self Wine Manager Name: Delivery Method: HAND - Hand Delivered Sierra Days: Prior Verbal Notification: Recipient Understood Notice: Yes Recipient Signature: Yes Med Rec Note Co-signed by Attending: Coverage Notice Comment: GREGORIA KEENAN Last DP export: 04/06/20 3:51 p Patient Name: SASCHA GONZALEZ Page [phone] at 1748 All edits/amendments must be made on the electronic document DICTATION DATE: 04/06/201746 QUALITY CONTROL EXPERT: UNRULY 04/06/201746 RPT#: [id number] DC DATE:04/06/20 STATUS: DIS IN [facility] [address] [place] [address] END OF REPORT
--- NOTE | 2020-04-06 18:07 | MORECARE ---
CASE MANAGEMENT DISCHARGE SUMMARY PATIENT: SASCHA GONZALEZ UNIT: [id number] ADM DATE: 03/31/20 AGE: 44 : 75 SEX: F ROOM/BED: D.0522 AUTHOR: JULIEN,DOC PHYSICIAN: REFERRING PHYSICIAN: LATIA ALVAREZ DO DATE OF SERVICE: 04/06/20 Discharge Plan Patient Name: SASCHA GONZALEZ Facility: [facility]:[place] : 1975 Planned Disposition: Home with Home Health Anticipated Discharge Date: 04/06/20 Discharge Date: 04/06/2020 Expected LOS: 6 Initial Reviewer: ALEK Initial Review Date: 03/31/2020 Generated: 04/06/20 7:06 pm Comments DCP- Discharge Planning Updated by [id number]: Brenda Pandya on 04/06/20 3:[address] Patient Name: SASCHA GONZALEZ Admission Status: ER Accout number: [id number] Admission Date: 03-31-2020 : 1975 Admission Diagnosis:PAIN DUE TO VASCULAR PROSTH DEV/GRFT, INITIAL ENCOUNTER Attending: HONORIO Current LOS: 6 Anticipated DC Date: 04-06-2020 Planned Disposition: Home with Home Health Primary Insurance: AETNA MEDICARE PPO or HMO Discharge Planning Comments: CM met with patient to complete initial dc planning assessment. CM educated patient on the CM role and verbal consent given by patient to complete assessment. Patient lives at home with family. Patient is independent. At discharge patient plans to return home and feels this is a safe discharge. CM discussed availability of home health, rehab services, and medical equipment. Patient uses [facility] for DME needs. Patient also has [facility] and plans to resume care. ZHANNA signed. D/C IMM SIGNED 04/06/20 @ 1040. Patient will have family to transport home. Patient denied known discharge needs at this time. CM will continue to follow and will assist as needed with dc plans/needs. Water Commissioner: Brenda Pandya DCPIA - Discharge Planning Initial Assessment Updated by [id number]: Brenda Pandya on 04/06/20 4:48 pm * Is the patient Alert and Oriented? Yes * How many steps to enter\exit or inside your home? * PCP [facility]ICKEY * [facility] * Preadmission Environment Home with Family * ADLs Independent * Other Equipment WALKER,W/C,SC, CPAP, HOSPITAL BED, GLUCOMETER, BSC, SCALE, NEBULIZER, HOME/ PORT 02 * List name and contact numbers for known caregivers / representatives who currently or will assist patient after discharge: MIKHAIL GARCIA- [phone] JAMES CHRISTIE - [phone] * Verbal permission to speak to the caregivers and representatives has been obtained from the patient. Yes * Community resources currently utilized Home Health * Please name any agencies selected above. GREGORIA KEENAN * Additional services required to return to the preadmission environment? No * Can the patient safely return to the preadmission environment? Yes * Has this patient been hospitalized within the prior 30 days at any hospital? No Coverage Notice Reviewer: [email or web address] Samara Pandya Notice Issued Date-Time: 04/06/2020 10:40 Notice Type: IM Discharge Notice Notice Delivered To: Patient Relationship to Patient: Self Carrot Grader Inspector Name: Delivery Method: HAND - Hand Delivered Sierra Days: Prior Verbal Notification: Recipient Understood Notice: Yes Recipient Signature: Yes Med Rec Note Co-signed by Attending: Coverage Notice Comment: Reviewer: [id number] Paul Pandya Notice Issued Date-Time: 04/06/2020 10:43 Notice Type: Patient Choice Letter Notice Delivered To: Patient Relationship to Patient: Self Carrot Grader Inspector Name: Delivery Method: HAND - Hand Delivered Sierra Days: Prior Verbal Notification: Recipient Understood Notice: Yes Recipient Signature: Yes Med Rec Note Co-signed by Attending: Coverage Notice Comment: GREGORIA KEENAN Last DP export: 04/06/20 4:48 p Patient Name: SASCHA GONZALEZ Page [phone] at 1807 All edits/amendments must be made on the electronic document DICTATION DATE: 04/06/201805 MEDIA REPORTER: UNRULY 04/06/201805 RPT#: [id number] [place] DATE:04/06/20 STATUS: DIS IN [facility] [address] [place] [address] END OF REPORT
--- NOTE | 2020-04-07 08:06 | EC ---
PATIENT:SASCHA GONZALEZ DATE OF SERVICE: 03/31/20 SEX: F MEDICAL RECORD: [id number] DATE OF : 75 LOCATION:D.M2 D.213 AGE OF PATIENT: 44 ADMISSION DATE: 03/31/20 REFERRING PHYSICIAN: INTERPRETING PHYSICIAN: DUANE FARMER MD ECHOCARDIOGRAM REPORT ECHO CHARGES 4 ECHO COMPLETE Date: 04/02/20 CLINICAL DIAGNOSIS: CHF ECHOCARDIOGRAPHIC MEASUREMENTS (adult normal given) AC root (d.<3.7cm) 2.9 cm LV Septum d (<1.2 cm> 0.8 cm Valve Excursion 1.9 cm LV Septum (systole) 1.1 cm Left Atria (s.<4.0cm> 3.5 cm LVPW d(<1.2cm) 1.2 cm RV (d.<2.3cm) 2.8 cm LVPW (sytole) 1.3 cm LV diastole(<5.6CM) 5.5 cm MV E-F(>70mm/sec) cm LV systole 3.9 cm LVOT Diameter 1.8 cm MV exc.(>10mm) cm Est.ejection fraction (50-75%) % DOPPLER: LVIT cm/sec A 36 cm/sec E 52 cm/sec LA cm/sec RVSP 31.0 mmHg LVOT 83 cm/sec AOP1/2T m/s Asc. Ao 110 cm/sec RVOT 80 cm/sec RA cm/sec PA 95 cm/sec AV Gradient Peak 4.9 mmHg AV Mean 1.8 mmHg AV Area 2.1 cm MV Gradient Peak 5.7 mmHg MV Mean 3.0 mmHg MV Area cm COMMENTS: [employer] Department Supervisor: Saurabh GRIMALDO Assistant Professor Of Psychology: [address] Dr. Hall TAPE# pacs Pericardial Effusion N DATE OF SERVICE: Adequate 2D, color flow imaging, spectral Doppler, and M-Mode. No LVH. LV internal dimensions are normal. LV is normal wall motion. 50% or better. Aortic valve is tricuspid. No evidence of stenosis by Doppler interrogation. Left atrium is normal at 3.5 cm. Mitral valve shows no prolapse. Trace MR. Right-sided chambers are grossly normal. Trace TR. 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
== END 2020-04-06 12:41 | disposition home health service (06) | DRG 315 ==
LOC: D.ER 15:39 → D.M2 18:19
PROVIDERS: Family Medicine; Internal Medicine Nephrology; ADMIT Internal Medicine; ATTEND Internal Medicine
DX: T82.848A Pain due to vascular prosthetic devices, implants and grafts, initial encounter (principal); I50.30 Unspecified diastolic (congestive) heart failure; Y83.9 Surgical procedure, unspecified as the cause of abnormal reaction of the patient, or of later complication, without mention of misadventure at the time of the procedure; I48.91 Unspecified atrial fibrillation; E11.40 Type 2 diabetes mellitus with diabetic neuropathy, unspecified; E87.6 Hypokalemia